=== PATIENT | female | born 1990 | race Asian ===

== ENCOUNTER 2018-12-18 05:26 | Inpatient (IN) | payer OTHER ==
[2018-12-18] MEDS ORDERED: ceFAZolin 2 GM in NS 100 ml - ONCE (Pharmacy Admix) IVPB ONE (06:30)
[2018-12-18] MEDS ORDERED: ceFAZolin* 2 GM* ONE DOSE (Duplex) IVPB (07:00)
[2018-12-18] MEDS ORDERED: Morphine PF AMP (0.5MG/ML)* 5 MG/10 ML AMP ONE (07:48)
[2018-12-18] MEDS ORDERED: OXYTOCIN* 10 UNITS/ML 1 ML VIAL ONE (07:49)
[2018-12-18] MEDS ORDERED: Ondansetron INJ* 2 MG/ML VIAL ONE (07:49)
[2018-12-18] MEDS ORDERED: Ketorolac INJ* 30 MG/ML 1 ML VIAL ONE (07:49)
[2018-12-18] MEDS ORDERED: Phenylephrine IV* 40 MCG/ML 10 ML SYRINGE ONE (07:55)
[2018-12-18] MEDS ORDERED: HYDROmorphone INJ1* 1 MG/ML SYRINGE IV PRN (08:44)
[2018-12-18] MEDS ORDERED: Acetaminophen IV 1GM/100ML * 1,000 MG/100 ML VIAL IVPB ONE (08:44)
[2018-12-18] MEDS ORDERED: oxyCODONE TAB* 5 MG TAB PO PRN (08:44)
[2018-12-18] MEDS ORDERED: DiMENhydriNATE IV* 50 MG/ML VIAL IV PUSH PRN (08:44)
[2018-12-18] MEDS ORDERED: EPHEDrine (Pressors)* 50 MG/ML VIAL ONE (08:51)
[2018-12-18] MEDS ORDERED: Acetaminophen TAB* 325 MG PO PRN (09:25)
[2018-12-18] MEDS ORDERED: Witch Hazel PAD* JAR TOPICAL PRN (09:25)
[2018-12-18] MEDS ORDERED: Dibucaine 1% 28.35 GM TUBE PR PRN (09:25)
[2018-12-18] MEDS ORDERED: Glycerin ADULT SUPP PR PRN (09:25)
[2018-12-18] MEDS ORDERED: Zolpidem TAB* 5 MG PO PRN (09:25)
[2018-12-18] MEDS ORDERED: oxyCODONE/Acetamin 5/325 MG* TAB PO PRN (09:25)
[2018-12-18] MEDS ORDERED: Acetaminophen IV 1GM/100ML * 100 ML ONE (09:44)
[2018-12-18] MEDS ORDERED: Lactated Ringers 1000 ML Bag* 1,000 ML IV SCH (10:00)
--- NOTE | 2018-12-18 10:31 | OP ---
OPERATIVE NOTE: DATE OF OPERATION: 12/18/18 DATE OF : 86 SURGEON: Dr. Lo. MILLER HELPER DISTILLERY: Tayler Suresh CNM. PRE-OP DIAGNOSES: 1. Intrauterine gestation at 39-plus weeks' gestational age. 2. Prior section, declines trial of labor after section. POST-OP DIAGNOSES: 1. Intrauterine gestation at 39-plus weeks' gestational age. 2. Prior section, declines trial of labor after section. OPERATIVE PROCEDURE: Repeat lower transverse section. ESTIMATED BLOOD LOSS: 700 mL. FLUIDS: Crystalloid. COMPLICATIONS: None. FINDINGS: Normal-appearing uterus, ovaries, and tubes. Male . Apgars 8 and 9. Weight 6 pounds 7 ounces. Normal-appearing placenta. There was a moderate amount of scar tissue throughout all the layers and a small amount of scarring of the peritoneum to the left side of the uterus. DESCRIPTION OF PROCEDURE: After informed consent was signed, the patient was taken to the operating room, where she was given spinal anesthesia that was found to be adequate. She was prepped and draped in the dorsal supine position with leftward tilt. Also, a Campbell catheter was inserted and SCDs were placed on her legs prior to draping. A time-out was performed. A Pfannenstiel skin incision was made with a scalpel and carried down to the underlying layer of fascia. The fascia was incised on either side of the midline with the scalpel and the fascial incision extended laterally with sharp dissection with Lee scissors. The inferior edge of the fascial incision was grasped with a Jose Francisco clamp, tented up, and dissected down with sharp dissection. Then, the superior edge of the fascial incision was tented up and dissected down with sharp dissection. The rectus muscles were already and the peritoneum was then entered bluntly. Peritoneum was very thick and the incision was extended laterally with the Bovie cautery. The bladder blade was inserted and a transverse incision was made in the lower uterine segment with the scalpel. The incision was extended superiorly and inferiorly with blunt pressure. The 's head delivered with fundal pressure, followed by the shoulders and the rest of the body. The cord was milked towards the baby, then clamped x2, and cut after more than 30 seconds. The baby was handed to the md allergy immunology. Cord blood was collected. The placenta then delivered with fundal massage and gentle cord traction. The uterus was exteriorized and cleared of clots and debris. The uterine incision was closed with 0 Vicryl in a running locked fashion with a second layer of suture imbricating the first. The latter appeared to be close to the incision, but clear urine was noted in the Campbell bag after the closure was complete. Good hemostasis was noted along the length of the uterine incision. The abdomen was then irrigated and the uterus placed back into the abdominal cavity. Once again, good hemostasis was noted. Therefore, the peritoneum was closed with 3-0 Vicryl in a running unlocked fashion. Next, the muscle layer was inspected and good hemostasis was noted. Then, the fascia was closed with 0 Vicryl in a running unlocked fashion. The subcuticular layer was irrigated and 2 interrupted sutures of 3-0 Vicryl were placed in the subcuticular layer to help with reapproximating the skin. Then, the skin was closed with 4-0 Monocryl in a running subcuticular fashion. The incision was cleaned. Mastisol and Steri-Strips were placed and a dressing was placed. The patient was moved to the stretcher and taken to the recovery room in stable condition. [id number]/[facility] #: [id number] DENY
[2018-12-18] MEDS: Ibuprofen TAB* 600 MG PO PRN ×2 (15:03→20:43)
[2018-12-18] MEDS: Simethicone TAB* 80 MG TAB.CHEW PO SCH ×3 (15:03→19:58)
[2018-12-18] MEDS: Docusate CAP* 100 MG PO SCH ×2 (15:03→19:58)
[2018-12-18] MEDS: oxyCODONE/Acetamin 5/325 MG* TAB PO PRN ×2 (17:58→21:49)
[2018-12-19] MEDS: oxyCODONE/Acetamin 5/325 MG* TAB PO PRN ×5 (01:26→18:34)
[2018-12-19] MEDS: Ibuprofen TAB* 600 MG PO PRN ×2 (04:10→14:04)
[2018-12-19 06:47] LABS: ABS Basophils 0 10^3/ul (0-0.2); ABS Eosinophils 0 10^3/ul (0-0.6); ABS Lymphocytes 1.4 10^3/ul (1.0-4.8); ABS Neutrophils 12.2 10^3/ul (1.5-7.7); ABS Nucleated RBC 0 10^3/ul; Eosinophil % 0.3 %; Hematocrit 30 % (35-47); Hemoglobin 9.9 g/dl (12.0-16.0); Lymphocyte % 9.6 %; Mean Corpuscular HGB Conc 33 g/dl (31-36); Mean Corpuscular Hemoglobin 30 pg (27-31); Mean Corpuscular Volume 91 fL (80-97); Mean Platelet Volume 9.3 fL (7.4-10.4); Nucleated Red Blood Cells % 0; Platelet Count 127 10^3/ul (150-450); Red Blood Count 3.27 10^6/ul (4.00-5.40); Red Cell Distribution Width 14 % (10.5-15); White Blood Count 14.7 10^3/ul (3.5-10.8)
[2018-12-19] MEDS: Ferrous Gluconate TAB* 324 MG TAB PO SCH ×2 (09:16→20:56)
[2018-12-19] MEDS: Docusate CAP* 100 MG PO SCH ×3 (09:16→20:56)
[2018-12-19] MEDS: Simethicone TAB* 80 MG TAB.CHEW PO SCH ×4 (09:16→21:04)
[2018-12-20] MEDS: oxyCODONE/Acetamin 5/325 MG* TAB PO PRN ×2 (06:30→23:35)
[2018-12-20] MEDS: Simethicone TAB* 80 MG TAB.CHEW PO SCH ×4 (09:20→23:35)
[2018-12-20] MEDS: Ferrous Gluconate TAB* 324 MG TAB PO SCH ×2 (09:20→23:35)
[2018-12-20] MEDS: Docusate CAP* 100 MG PO SCH ×3 (09:20→23:35)
[2018-12-20] MEDS: Ibuprofen TAB* 600 MG PO PRN ×3 (12:07→23:34)
[2018-12-21] MEDS: oxyCODONE/Acetamin 5/325 MG* TAB PO PRN (08:19)
[2018-12-21] MEDS: Ibuprofen TAB* 600 MG PO PRN (08:19)
[2018-12-21] MEDS: Docusate CAP* 100 MG PO SCH (08:19)
[2018-12-21] MEDS: Ferrous Gluconate TAB* 324 MG TAB PO SCH (08:19)
[2018-12-21] MEDS: Simethicone TAB* 80 MG TAB.CHEW PO SCH (08:20)
[2018-12-21 09:05] VITALS: BP 109/59
== END 2018-12-21 12:38 | disposition home or self-care (01) | DRG 788 ==
LOC: MCHOB 06:05
PROVIDERS: ADMIT Obstetrics & Gynecology; ATTEND Obstetrics & Gynecology
PROC: 10D00Z1 Extraction of Products of Conception, Low, Open Approach (ICD-10-PCS; principal; 2018-12-18 07:45)
DX: O34.211 Maternal care for low transverse scar from previous cesarean delivery (principal); O90.81 Anemia of the puerperium; D64.9 Anemia, unspecified; Z3A.39 39 weeks gestation of pregnancy; Z37.0 Single live birth
CPT/HCPCS: 36415; 85025; A9270-GY; J0690; J1885; J2405; J2590